=== PATIENT | female | born 1980 | race African-American/Black ===

== ENCOUNTER 2018-08-02 08:43 | Day surgery (SDC) | payer OTHER ==
[2018-08-02] MEDS ORDERED: PROPOFOL 40 ML (11:29)
== END 2018-08-02 12:30 | disposition home or self-care (01) ==
LOC: GIL 08:43
DX: K64.8 Other hemorrhoids (principal); K29.50 Unspecified chronic gastritis without bleeding; D12.8 Benign neoplasm of rectum
CPT/HCPCS: 43239; 88305; 88312